=== PATIENT | male | born 1975 | race Caucasian/White ===

== ENCOUNTER 2022-01-16 06:30 | Inpatient (IN) | payer BC ==
[2022-01-16 07:33] VITALS: BMI 27.3
[2022-01-16] MEDS: Ringers Lactate 1,000 ML IV SCH ×2 (07:48→16:37)
[2022-01-16] MEDS ORDERED: BUPIVACAINE 0.5% PF 10 ML VIAL ONE (08:41)
[2022-01-16] MEDS ORDERED: CEFOXITIN SODIUM 1 GM/VIAL ONE (08:59)
[2022-01-16] MEDS ORDERED: SUCCINYLCHOLINE 20 MG/ML (10 ML) IV ONE (08:59)
[2022-01-16] MEDS ORDERED: propofoL 200 MG/20 ML VIAL IV ONE (09:02)
[2022-01-16] MEDS ORDERED: MIDAZOLAM HCL 2 MG/2 ML INJ ONE (09:02)
[2022-01-16] MEDS ORDERED: FENTANYL CITR 100 MCG/2 ML ONE ×2 (09:02→09:34)
[2022-01-16] MEDS ORDERED: ROCURONIUM 50 MG/5 ML VIAL IV ONE ×2 (09:02→09:37)
--- NOTE | 2022-01-16 09:11 | P.HP ---
Date of Service: 01/16/22 Chief complaint: Abdominal pain History of present Illness: Patient is a 46-year-old gentleman comes in with 1 week history of nonspecific abdominal pain with waxing and waning symptomology. Last night however patient's pain localized to the right lower quadrant associated with nausea. Also had temperature of greater than 102. Patient went to [facility] emergency room and was evaluated. Patient had leukocytosis and CAT scan showed uncomplicated acute appendicitis. I was contacted and accepted the patient in transfer. Patient is awake and alert in no acute distress at this time. Patient denies sore throat, runny nose, headaches, dizziness, cough or chest pain. Patient denies diarrhea, constipation or blood in his stool. Gabriel villa also denies dysuria and hematuria. Patient does have slight anorexia. Review of systems: Otherwise unremarkable Past medical history: Negative Past surgical history: [place] teeth Allergies: None Social history: Quit smoking 22 years ago and occasional use of alcohol Family history: Noncontributory Vital signs: Stable, temperature is 102.3 Physical exam: Awake alert oriented x3 Head and neck: Cranial nerves II through XII grossly within normal limits, no neck masses, no JVD, throat clear and neck is supple. Chest: Clear Heart: S1-S2 Abdomen: Soft, nondistended, positive bowel sounds with rebound tenderness in the right lower quadrant Extremity: Nontender with full range of motion Neuro: Nonfocal Diagnostic data: White count is 13.[address] of the abdomen pelvis shows acute ap pendicitisuncomplicated Assessment: Acute appendicitis Plan/recommendation: Admit, n.p.o., IV fluids, IV antibiotics and to the OR for laparoscopic appendectomy possible open. Patient understands risk benefits alternatives and agrees to procedure. CC:
[2022-01-16] MEDS ORDERED: Ringers Lactate 1,000 ML IV ONE (10:16)
[2022-01-16] MEDS ORDERED: GLYCOPYRROLATE 0.2 MG/ML SYR ONE ×2 (10:19→10:20)
[2022-01-16] MEDS ORDERED: NEOSTIGMINE 1 MG/ML -5 ML ONE (10:19)
--- NOTE | 2022-01-16 10:51 | P.OP ---
Date of Service: 01/16/22 Preop diagnosis: Acute appendicitis Postop diagnosis: Acute suppurative appendicitis with extensive inflammation and umbilical hernia Procedure performed: Laparoscopic appendectomy, repair of umbilical hernia Surgeon: Domo Rogers MD Commercial Housekeeper: None Estimated blood loss: Minimal Specimen: Hernia sac and contents, appendix Findings: As above Anesthesia: General Complications: None Drains: None Fluids and blood products: Nonapplicable Disposition: Recovery room Operative note: Patient brought to the OR and placed in supine position. General anesthesia begun. Patient prepped and draped in usual sterile fashion. Marcaine 0.5% infiltrated locally. 15 blade used to make a 1 cm incision in the supraumbilical region. In the subcutaneous tissue a small hernia was identified with preperitoneal fat. Hernia sac and contents were excised and sent to pathology. Fascia was identified and divided. #1 Vicryl was placed in the fascia as well as the hernia edges. Peritoneal cavity was entered with sharp and blunt dissection. 12 mm trocar was placed into the peritoneal cavity under direct vision. Pneumoperitoneum was established and 2 5 mm trochars were placed. 1 trocar was placed in the suprapubic region and another in the left lower quadrant. Laparoscopy revealed suppuration with fluid in the right lower quadrant and pelvis. The appendix was markedly inflamed with dense adhesions surrounding it. Mesoappendix and base of the appendix were clearly identified. Pelvis and right lower quadrant was thoroughly irrigated and all inflammatory fluid was aspirated. LigaSure was used to divide the mesoappendix. Endo WAYNE stapling device was used to divide the base of the appendix on the cecum. Appendix was removed through the the umbilicus via Endo Catch bag. Right lower quadrant and pelvis were thoroughly irrigated again. No evidence of bleeding or bowel injury appreciated. All trochars removed under direct vision. Stay sutures tied to each other to reapproximate the fascial defect as well as to close the hernia defect. 3-0 chromic used to reapproximate subcutaneous tissue. Wound irrigated and bleeding controlled with cautery. Staple used to close skin. Sterile dressing applied. Patient awakened and taken to recovery room in good general condition. CC:
[2022-01-16] MEDS: HYDROCODONE/APAP 7.5/325 MG TAB PO PRN (13:38)
[2022-01-16] MEDS: PIPER TAZO 3.375 GM in NA CHLORIDE 0.9% 100 ML IV SCH ×2 (13:45→21:07)
[2022-01-16] MEDS ORDERED: PIPER TAZO 3.375 GM in NA CHLORIDE 0.9% 100 ML IV ONE (14:00)
[2022-01-16] MEDS ORDERED: PIPER TAZO 3.375 GM in NA CHLORIDE 0.9% 100 ML IV SCH (14:00)
[2022-01-16] MEDS: HYDROMORPHONE HCL 1 MG/ML INJ IV PRN ×3 (16:37→22:12)
[2022-01-16] MEDS: ZOLPIDEM TARTRATE 5 MG TABLET PO PRN (21:07)
[2022-01-17] MEDS: HYDROMORPHONE HCL 1 MG/ML INJ IV PRN ×8 (01:20→22:17)
[2022-01-17 04:32] LABS: Absolute Lymphocytes (CBC) 1.7 K/uL (0.7-4.9); Hematocrit 36.7 % (39.6-49.0); Lymphocytes % 12.3 % (15.3-44.8); MPV 9.2 fL (7.6-11.3); RBC Red Blood Cell Count 4.08 M/uL (4.33-5.43)
[2022-01-17 04:47] LABS: BUN Blood Urea Nitrogen 13 mg/dL (7-18); Bicarbonate 24 mmol/L (21-32); Glucose Level 119 mg/dL (74-106); Magnesium 2.1 mg/dL (1.8-2.4); Phosphorus 2.4 mg/dL (2.5-4.9); Sodium Level 134 mmol/L (136-145)
[2022-01-17] MEDS: PIPER TAZO 3.375 GM in NA CHLORIDE 0.9% 100 ML IV SCH ×3 (05:42→21:34)
[2022-01-17] MEDS: POTASS/SODIUM PHOSPHATE 1 PKT POWD.PACK PO SCH ×3 (05:42→08:37)
[2022-01-17] MEDS: Ringers Lactate 1,000 ML IV SCH ×3 (08:38→16:43)
--- NOTE | 2022-01-17 10:32 | P.PN ---
Date of Service: 01/17/22 Subjective: Patient is awake and alert. Tolerating clear liquids. Passing gas. Complaining of minimal abdominal distention. Objective: Vital signs stable, afebrile White count is 13.6 Abdomen: Soft, slightly distended, bowel sounds present with minimal tenderness and no peritonitis Assessment: Status post laparoscopic appendectomy for acute suppurative appendicitis with ileus Plan: Slowly advance diet, encourage ambulation and incentive spirometry. Continue IV antibiotics. When patient is clinically better, patient will be discharged within the next day or 2. CC:
[2022-01-17] MEDS: ONDANSETRON 4 MG/2 ML VIAL IV PRN (19:49)
[2022-01-17] MEDS: ZOLPIDEM TARTRATE 5 MG TABLET PO PRN (21:34)
[2022-01-17] MEDS: PROMETHAZINE INJ 25 MG/ML AMP IV PRN (22:05)
[2022-01-18] MEDS: HYDROMORPHONE HCL 1 MG/ML INJ IV PRN ×7 (01:33→21:19)
[2022-01-18] MEDS: Ringers Lactate 1,000 ML IV SCH ×5 (01:33→21:19)
[2022-01-18] MEDS: PROMETHAZINE INJ 25 MG/ML AMP IV PRN ×3 (01:35→13:18)
[2022-01-18] MEDS: ONDANSETRON 4 MG/2 ML VIAL IV PRN ×2 (04:29→10:25)
[2022-01-18 04:37] LABS: Absolute Lymphocytes (CBC) 1.1 K/uL (0.7-4.9); Hematocrit 41.9 % (39.6-49.0); Lymphocytes % 6.9 % (15.3-44.8); MPV 8.7 fL (7.6-11.3); RBC Red Blood Cell Count 4.73 M/uL (4.33-5.43)
[2022-01-18 04:46] LABS: BUN Blood Urea Nitrogen 12 mg/dL (7-18); Bicarbonate 26 mmol/L (21-32); Glucose Level 133 mg/dL (74-106); Phosphorus 3.9 mg/dL (2.5-4.9); Potassium 4.4 mmol/L (3.5-5.1); Sodium Level 132 mmol/L (136-145)
[2022-01-18] MEDS: PIPER TAZO 3.375 GM in NA CHLORIDE 0.9% 100 ML IV SCH ×3 (05:47→21:19)
[2022-01-18] MEDS ORDERED: SODIUM CHLORIDE 0.9% 20 ML VIAL IV PRN (09:58)
[2022-01-18] MEDS: PANTOPRAZOLE 40 MG INJ IVP SCH ×2 (10:25→21:00)
--- NOTE | 2022-01-18 12:10 | PN ---
Date of Progress Note: 01/18/2022 Subjective: Patient is awake and alert. Had nausea and 1 episode of vomiting last night, but feels better this morning. Passing gas. Has not had a bowel movement. Objective: Vital Signs: Stable. He is afebrile. Abdomen: Slightly distended with hypoactive bowel sounds, but it is nontender and no peritonitis. I t is soft. Laboratory Data: Reviewed. His white count has gone up a little bit at 16.1. Chemistry is essentia lly unremarkable. Assessment: Status post laparoscopic appendectomy for acute suppurative appendicitis with a postop i leus. Recommendations: Continue IV antibiotics. Encourage ambulation and incentive spirometry. Sips of c lear liquids and diet as tolerated. Hopefully, the patient will be stable enough for discharge in 24 -48 hours. /MODL Voice ID: [id number] Report ID: [id number]
[2022-01-18] MEDS ORDERED: BISACODYL E.C. 5 MG TAB PO PRN (16:10)
--- NOTE | 2022-01-18 16:23 | RAD REPORT ---
EXAM DESCRIPTION: US - Abdomen Exam Complete - 01/18/2022 3:29 pm CLINICAL HISTORY: vomiting , abdominal pain COMPARISON: No comparisons FINDINGS: Gallbladder size is normal. No gallstones, wall thickening or pericholecystic fluid. Commo n bile duct is normal with no common duct stone identified. Liver size is normal. There is coarsened, increased hepatic echogenicity seen consistent with fatty i nfiltration. There is some spared parenchyma at the gallbladder fossa. No focal liver lesions seen. N o portal vein abnormality. No splenomegaly or focal splenic finding. The pancreas is obscured by bowel. No hydronephrosis or suspicious mass in either kidney. Aorta and IVC are too obscured by bowel for assessment. Small amount of ascites present. IMPRESSION: No gallbladder or biliary tree abnormality. Fatty infiltration of the liver with no focal liver lesion. Small amount of ascites. Pancreas, aorta and IVC are too obscured by bowel gas for assessment. CT imaging can be performed as warranted.
--- NOTE | 2022-01-18 18:54 | RAD REPORT ---
EXAM DESCRIPTION: RAD - Abdomen Single View - 01/18/2022 6:26 pm CLINICAL HISTORY: abd pain Patient is status post appendix surgery and hernia repair COMPARISON: <Comparisons> FINDINGS: Multiple all mildly dilated small bowel loops are present throughout the abdomen. Air and stool are present in the mostly decompressed colon. Air in fluid fill stomach. Free air or pneumatosi s. No suspicious calcifications. No significant bony findings IMPRESSION: Multiple mildly dilated small bowel with no free air or pneumatosis. Prominent postoperative ileus is the most likely etiology.
[2022-01-18] MEDS: ZOLPIDEM TARTRATE 5 MG TABLET PO PRN (21:18)
[2022-01-19] MEDS: Ringers Lactate 1,000 ML IV SCH ×4 (03:45→19:35)
[2022-01-19] MEDS: HYDROMORPHONE HCL 1 MG/ML INJ IV PRN ×6 (03:47→22:38)
[2022-01-19 04:33] LABS: Absolute Lymphocytes (CBC) 1.8 K/uL (0.7-4.9); Hematocrit 36.1 % (39.6-49.0); Lymphocytes % 13.4 % (15.3-44.8); MPV 8.2 fL (7.6-11.3); RBC Red Blood Cell Count 4.11 M/uL (4.33-5.43)
[2022-01-19 04:56] LABS: BUN Blood Urea Nitrogen 14 mg/dL (7-18); Bicarbonate 25 mmol/L (21-32); Glucose Level 112 mg/dL (74-106); Magnesium 2.1 mg/dL (1.8-2.4); Phosphorus 2.5 mg/dL (2.5-4.9); Sodium Level 134 mmol/L (136-145)
[2022-01-19] MEDS: PIPER TAZO 3.375 GM in NA CHLORIDE 0.9% 100 ML IV SCH ×3 (05:13→23:55)
[2022-01-19] MEDS: PANTOPRAZOLE 40 MG INJ IVP SCH ×2 (09:00→20:32)
--- NOTE | 2022-01-19 10:53 | P.PN ---
Date of Service: 01/19/22 Subjective: Patient is awake and alert. Passing gas. Patient has no abdominal pain. Has not had nausea or vomiting all night. Objective: Vital signs stable, afebrile White count is 13. 8 and pathology report reviewed with Dr. Stanton. Patient had perforated appendicitis Abdomen: Soft, slightly distended, bowel sounds present with minimal tenderness and no peritonitis Assessment: Status post laparoscopic appendectomy for acute suppurative appendicitis with perforation and ileus. Plan: Begin clear liquid diet and encourage ambulation and incentive spirometry. Continue IV antibiotics. When patient is clinically better, patient will be discharged within the next day or 2. CC:
[2022-01-19] MEDS: ZOLPIDEM TARTRATE 5 MG TABLET PO PRN (22:39)
[2022-01-20] MEDS: HYDROMORPHONE HCL 1 MG/ML INJ IV PRN ×2 (02:18→05:22)
[2022-01-20] MEDS: Ringers Lactate 1,000 ML IV SCH ×2 (02:21→08:00)
[2022-01-20 05:33] LABS: Absolute Lymphocytes (CBC) 1.8 K/uL (0.7-4.9); Hematocrit 36.3 % (39.6-49.0); Lymphocytes % 16.5 % (15.3-44.8); MPV 8.4 fL (7.6-11.3); RBC Red Blood Cell Count 4.05 M/uL (4.33-5.43)
[2022-01-20] MEDS: PIPER TAZO 3.375 GM in NA CHLORIDE 0.9% 100 ML IV SCH (06:44)
[2022-01-20 08:18] VITALS: O2SAT 93
--- NOTE | 2022-01-20 09:13 | P.DS ---
Admission Date: 01/17/22 Discharge Date: 01/20/22 Disposition: ROUTINE DISCHARGE Discharge Condition: GOOD Reason for Admission: Acute appendicitis Procedures: Laparoscopic appendectomy - Problems (1) Acute appendicitis with generalized peritonitis, with abscess Current Visit: Yes Status: Acute Qualifiers: Appendicitis gangrene presence: without gangrene Appendicitis perforation presence: with perforation Qualified Code(s): K35.21 - Acute appendicitis with generalized peritonitis, with abscess Brief History of Present Illness: 46-year-old gentleman who presented to the emergency room with 1 week history of diffuse abdominal pain localizing to the right lower quadrant. Hospital Course: Patient is a 46-year-old gentleman who came to the emergency room with chief complaint of abdominal pain. Work-up revealed acute appendicitis. Patient taken to the operating room for laparoscopic appendectomy. Patient had severe infection in the pelvis and right lower quadrant region. Perforation at that time could not be ruled out patient had separation and pus in his pelvis. Pathology report confirmed that patient had perforation. Postoperatively patient developed ileus. Conservative measures was utilized to treat ileus which improved on medical management. Patient is tolerating diet, ambulating, pain controlled on p.o. pain medication and afebrile. Therefore, patient will be discharged to home. Disposition: Home Condition: Stable Activity: No heavy lifting or strenuous exercise Follow-up my office in 1 weekcall for appointment Prescription for Augmentin [place] 7[place] Patient may shower. Keep wound clean and dry. Dry gauze or large Band-Aid to wound daily. Vital Signs/Physical Exam: Temp Pulse Resp BP Pulse Ox 97.3 F 75 18 137/80 95 01/20/22 08:00 01/20/22 08:00 01/20/22 08:00 01/20/22 08:00 01/20/22 08:00 Laboratory Data at Discharge: WBC 10.8 K/uL (4.3-10.9) D 01/20/22 05:11 Hgb 12.3 g/dL (13.6-17.9) L 01/20/22 05:11 Hct 36.3 % (39.6-49.0) L 01/20/22 05:11 Plt Count 344 K/uL (152-406) 01/20/22 05:11 Sodium 134 mmol/L (136-145) L 01/19/22 04:13 Potassium 4.0 mmol/L (3.5-5.1) 01/19/22 04:13 BUN 14 mg/dL (7-18) 01/19/22 04:13 Creatinine 0.78 mg/dL (0.55-1.3) 01/19/22 04:13 Glucose 112 mg/dL (74-106) H 01/19/22 04:13 Phosphorus 2.5 mg/dL (2.5-4.9) 01/19/22 04:13 Magnesium 2.1 mg/dL (1.8-2.4) 01/19/22 04:13 Home Medications: NK [No Home Meds] 01/16/22
[2022-01-20] MEDS: PANTOPRAZOLE 40 MG INJ IVP SCH (09:35)
[2022-01-20] MEDS: HYDROCODONE/APAP 7.5/325 MG TAB PO PRN ×2 (09:36→13:11)
[2022-01-20 12:12] VITALS: BP 123/67; TEMP 97.2
== END 2022-01-20 15:15 | disposition home or self-care (01) | DRG 339 ==
LOC: 2ND 06:30 → OBSVTOIN 01-17 11:36
PROVIDERS: ADMIT Surgery; ATTEND Surgery
PROC: 0DTJ4ZZ Resection of Appendix, Percutaneous Endoscopic Approach (ICD-10-PCS; principal; 2022-01-16 09:00)
PROC: 0WQF0ZZ Repair Abdominal Wall, Open Approach (ICD-10-PCS; 2022-01-16 09:00)
DX: K35.33 Acute appendicitis with perforation, localized peritonitis, and gangrene, with abscess (principal); K91.89 Other postprocedural complications and disorders of digestive system; K56.7 Ileus, unspecified; K42.9 Umbilical hernia without obstruction or gangrene
CPT/HCPCS: 36415; 74018; 76700; 80048; 83735; 84100; 85025; 88302; 88304; 94010; C9113; G0378; G0379; J0330; J0694; J1170; J2250; J2405; J2543; J2550; J2704; J2710; J3010; J7120